=== PATIENT | male | born 1985 | race Caucasian/White ===

== ENCOUNTER 2016-11-11 10:01 | Emergency (ER) | payer OTHER ==
[2016-11-11 10:44] VITALS: BP 125/86
--- NOTE | 2016-11-11 11:11 | UC ---
Skin Complaint HPI - HPI Summary HPI Summary: 2 days ago pt noticed thorn or other FB in R thigh above knee after walking in the [place]. Pulled it out, and now area is swollen and red and tender. Denies fever or joint pain. - History of Current Complaint Chief Complaint: UCLowerExtremity Time Seen by Provider: 11/11/16 10:41 Stated Complaint: RIGHT KNEE PAIN Hx Obtained From: Patient Onset/Duration: Gradual Onset, Lasting Days Timing: Constant Onset Severity: Mild Current Severity: Mild Location: Discrete Character: Redness, Raised, Painful Aggravating Factor(s): Touch Associated Signs & Symptoms: Negative: Fever, Chills, Syncope, Drainage Related History: Foreign Body - Allergy/Home Medications Allergies/Adverse Reactions: Allergies Allergy/AdvReac Type Severity Reaction Status Date / Time No Known Allergies Allergy Verified 11/11/16 10:44 Home Medications: Home Medications Acetaminophen [Acetaminophen Extra Stren] 1,000 mg PO Q6H PRN 11/11/16 [History Confirmed 11/11/16] Review of Systems Constitutional: Negative Skin: Other - redness, PW Eyes: Negative ENT: Negative Respiratory: Negative Cardiovascular: Negative Gastrointestinal: Negative Genitourinary: Negative Motor: Negative Neurovascular: Negative Musculoskeletal: Negative Neurological: Negative Psychological: Negative Is Patient Immunocompromised?: No All Other Systems Reviewed And Are Negative: Yes PMH/Surg Hx/FS Hx/Imm Hx Previously Healthy: Yes - Surgical History Surgical History: Yes Surgery Procedure, Year, and Place: WISDOM TEETH EXTRACTION - Family History Known Family History: Negative: Blood Disorder - Social History Occupation: Employed Full-time Alcohol Use: Occasionally Substance Use Type: None Smoking Status (MU): Never Smoked Tobacco Physical Exam Triage Information Reviewed: Yes Appearance: Well-Appearing, No Pain Distress, Well-Nourished Vital Signs: Initial Vital Signs Temp 98.3 F 11/11/16 10:37 Pulse 79 11/11/16 10:37 Resp 16 11/11/16 10:37 BP 125/86 11/11/16 10:37 Pulse Ox 98 11/11/16 10:37 Vital Signs Reviewed: Yes Eye Exam: Normal Eyes: Positive: Conjunctiva Clear ENT Exam: Normal ENT: Positive: Normal ENT inspection, Hearing grossly normal, TMs normal Dental Exam: Normal Neck exam: Normal Neck: Positive: Supple, Nontender, No Lymphadenopathy Respiratory Exam: Normal Respiratory: Positive: Chest non-tender, Lungs clear, Normal breath sounds, No respiratory distress, No accessory muscle use Cardiovascular Exam: Normal Cardiovascular: Positive: RRR, No Murmur Musculoskeletal Exam: Normal Neurological Exam: Normal Skin Exam: Other - PW on R lower thigh with small ring of reactive erythema. Approx 12cm round area of faint swelling, pink skin, tenderness. Course/Dx - Diagnoses Provider Diagnoses: R leg retained FB. R leg cellulitis Discharge - Discharge Plan Condition: Stable Disposition: HOME Prescriptions: Sulfamethox/Trimethoprim DS* [Bactrim DS 800/160 TAB*] 1 tab PO BID #10 tab Patient Education Materials: Soft Tissue Foreign Body (ED), Cellulitis (ED) Referrals: Micheline Felder MD [Medical Doctor] - Additional Instructions: Apply frequent hot compresses today to encourage your skin to expel the foreign body. If a small abscess forms, you can continue the warm compresses to see if it spontaneously drains. Come back if you have a very large, very painful, or non-draining abscess. Please get seen again if you do not see some improvement within 48 hours, or at any time if you have fever, pain in the joint, or increasing redness/swelling.
== END 2016-11-11 11:16 | disposition home or self-care (01) ==
LOC: UCCORT 10:01
DX: H65.92 Unspecified nonsuppurative otitis media, left ear (principal); J32.9 Chronic sinusitis, unspecified; J98.01 Acute bronchospasm; F17.210 Nicotine dependence, cigarettes, uncomplicated
CPT/HCPCS: 99202; G0463

== ENCOUNTER 2017-11-02 17:19 | Emergency (ER) | payer OTHER ==
[2017-11-02 18:38] VITALS: BP 148/82
[2017-11-02] MEDS ORDERED: Clindamycin CAP* 150 MG PO ONE (19:16)
--- NOTE | 2017-11-02 19:17 | UC ---
Upper Extremity HPI - HPI Summary HPI Summary: WOKE UP SATURDAY WITH A SORE AND SWOLLEN RIGHT ELBOW NO HX OF INJURY TODAY IS RED SWOLLEN AND HURTS TO MOVE - History of Current Complaint Chief Complaint: UCUpperExtremity Stated Complaint: RIGHT ELBOW PAIN Time Seen by Provider: 11/02/17 19:02 Hx Obtained From: Patient ?: No Onset/Duration: Sudden Onset, Lasting Days Severity Initially: Mild Severity Currently: Mild Pain Intensity: 2 Location Of Pain: Is Discrete @ - right elbow Character: Dull, Throbbing Aggravating Factor(s): Movement, Flexion Alleviating Factor(s): OTC Meds Associated Signs And Symptoms: Positive: Swelling, Redness - Risk Factors Non-Orthopedic Risk Factor: Negative DVT Risk Factors: Negative Septic Arthritis Risk Factor: Negative Compartment Syndrome Risk Factors: Pain - Allergies/Home Medications Allergies/Adverse Reactions: Allergies Allergy/AdvReac Type Severity Reaction Status Date / Time No Known Allergies Allergy Verified 11/11/16 10:44 Home Medications: Home Medications Naproxen Sodium [Aleve] 440 mg PO Q8H 11/02/17 [History Confirmed 11/02/17] PMH/Surg Hx/FS Hx/Imm Hx Previously Healthy: Yes - Surgical History Surgical History: Yes Surgery Procedure, Year, and Place: WISDOM TEETH EXTRACTION - Family History Known Family History: Positive: Diabetes Negative: Blood Disorder - Social History Alcohol Use: Occasionally Substance Use Type: None Smoking Status (MU): Never Smoked Tobacco Review of Systems Skin: Other - redness/heat on right elbow Musculoskeletal: Myalgia All Other Systems Reviewed And Are Negative: Yes Physical Exam Triage Information Reviewed: Yes Appearance: Well-Appearing, No Pain Distress, Obese Vital Signs: Initial Vital Signs Temp 98.0 F 11/02/17 18:34 Pulse 53 11/02/17 18:34 Resp 22 11/02/17 18:34 BP 148/82 11/02/17 18:34 Pulse Ox 99 11/02/17 18:34 Vital Signs Reviewed: Yes Eyes: Positive: Conjunctiva Clear ENT: Positive: Hearing grossly normal Neck: Positive: Supple Respiratory: Positive: Chest non-tender Cardiovascular: Positive: Pulses Normal, Brisk Capillary Refill Abdomen Description: Positive: Nontender Bowel Sounds: Positive: Present Musculoskeletal: Positive: Strength Intact, ROM Intact, Edema @ - right elbow with soft tissue swelling/erythema and prominent bursa, no streaking Upper Extremity Course/Dx - Course Course Of Treatment: Soft tissue swelling on right elbow consistent with olecranon bursitis. Continue naproxen as needed and start clindamycin tid for 7 days as prescribed, first dose given at . f/u with PCP in a week. - Differential Dx/Diagnosis Provider Diagnoses: Olecranon bursitis of right elbow. Discharge - Sign-Out/Discharge Documenting (check all that apply): Patient Departure All imaging exams completed and their final reports reviewed: No Studies - Discharge Plan Condition: Stable Disposition: HOME Patient Education Materials: Elbow Bursitis (ED), Clindamycin (By mouth) Referrals: No Primary Care Phys,NOPCP [Primary Care Provider] - [facility] [place] [facility] [Outside] - Billing Disposition and Condition Condition: STABLE Disposition: Home
== END 2017-11-02 19:31 | disposition home or self-care (01) ==
LOC: UCCORT 17:19
DX: M70.21 Olecranon bursitis, right elbow (principal); Y93.9 Activity, unspecified
CPT/HCPCS: 99212; A9270-GY; G0463

== ENCOUNTER 2019-01-04 11:04 | Emergency (ER) | payer BC, OTHER ==
[2019-01-04 11:52] VITALS: BP 148/78
--- NOTE | 2019-01-04 12:30 | UC ---
Knee Pain HPI - HPI Summary HPI Summary: 33 yo who awoke with acutely swollen right knee without hx of injury; spent yesterday deer hunting with increased walking, but [place] most of the [place]. No hx of gout. Alcohol intake is about 3 beers per week, diet is high in meat, no past hx of gout and no FH of gout. no fever, chills or myalgias. He has used naproxen 440mg without significant relief of pain. works as an excavator. - History of Current Complaint Chief Complaint: UCLowerExtremity Stated Complaint: RT KNEE COMPLAINT Time Seen by Provider: 01/04/19 12:28 Hx Obtained From: Patient Onset/Duration: Sudden Onset Severity Initially: Moderate Severity Currently: Moderate Pain Intensity: 5 Character: Aching Aggravating Factor(s): Movement, Weight Bearing Alleviating Factor(s): Position, OTC Meds - tried naproxen 440mg Associated Signs And Symptoms: Positive: Swelling, Redness. Negative: Fever Able to Bear Weight: Yes - Risk Factors Septic Arthritis Risk Factor: Negative Gout Risk Factor: Male, Obesity - Allergies/Home Medications Allergies/Adverse Reactions: Allergies Allergy/AdvReac Type Severity Reaction Status Date / Time No Known Allergies Allergy Verified 01/04/19 11:47 PMH/Surg Hx/FS Hx/Imm Hx Previously Healthy: Yes - no regular MD checks. - Surgical History Surgical History: Yes Surgery Procedure, Year, and Place: WISDOM TEETH EXTRACTION - Family History Known Family History: Positive: Diabetes - grandfather, Other - negative FH of gout Negative: Blood Disorder - Social History Occupation: Employed Full-time Lives: With Family Alcohol Use: Occasionally Substance Use Type: None Smoking Status (MU): Never Smoked Tobacco Review of Systems All Other Systems Reviewed And Are Negative: Yes Constitutional: Positive: Negative Skin: Positive: Negative Physical Exam Appearance: Well-Appearing, Pain Distress - mild at rest, moderate with walking. Vital Signs: Initial Vital Signs Temp 98.8 F 01/04/19 11:48 Pulse 89 01/04/19 11:48 Resp 16 01/04/19 11:48 BP 148/78 01/04/19 11:48 Pulse Ox 99 01/04/19 11:48 ENT: Positive: Pharynx normal Neck: Positive: Supple, Nontender, No Lymphadenopathy Respiratory: Positive: Lungs clear, Normal breath sounds Cardiovascular: Positive: RRR, No Murmur Musculoskeletal Exam: Other - Right knee with mild erythema, no increased warmth , in pre-patellar area. Musculoskeletal: Positive: Strength Intact, No Edema, ROM Limited @ - right knee , with active flexion to just shy of 90 degrees. No instability detercted with neg Lachmann's and medial and lateral joint stress. Neurological Exam: Normal Psychological Exam: Normal Skin Exam: Normal Diagnostics - Radiology No standard instances Radiology Interpretation Completed By: Radiologist Summary of Radiographic Findings: Small to moderate right knee joint effusion without bony abnormality per Dr. Ralph. Knee Pain Course/Dx - Course Course Of Treatment: Clinical picture suggest bursitis, will continue with naproxen, ice. Labs done to rule out septic joint, gout and Lyme, with referral to Dr. Yan for evaluation and management. Crutches declined by patient. - Differential Dx/Diagnosis Differential Diagnosis/HQI/PQRI: Bursitis, Gout, Strain, Other Provider Diagnosis: Acute pain of right knee Discharge ED - Sign-Out/Discharge Documenting (check all that apply): Patient Departure All imaging exams completed and their final reports reviewed: Yes - Discharge Plan Condition: Stable Disposition: HOME Prescriptions: Naproxen [Naproxen 500 mg tab] 500 mg PO BID #30 tablet Patient Education Materials: Swollen Knee Joint (ED) Referrals: No Primary Care Phys,NOPCP [Primary Care Provider] - Dylan Yan MD [Medical Doctor] - Additional Instructions: Your blood pressure is elevated today to 148/78. Labs have been done today to screen for gout, infection and Lyme disease. A prescription has been sent for naproxen 500m g twice daily with food for knee pain and inflammation. Continue to ice the knee for 20 to 30 minutes every 3 hours, with elevation. You have a referral to Dr. Yan for assessment and management of the knee swelling. Please call to arrange a visit within 1 to 2 days. - Billing Disposition and Condition Condition: STABLE Disposition: Home
[2019-01-05 11:11] LABS: ABS Eosinophils 0.1 10^3/ul (0-0.6); ABS Lymphocytes 1.4 10^3/ul (1.0-4.8); ABS Monocytes 0.6 10^3/ul (0-0.8); ABS Neutrophils 8.3 10^3/ul (1.5-7.7); Albumin 4.3 g/dL (3.2-5.2); Calcium 9.6 mg/dL (8.6-10.3); Eosinophil % 1.2 %; Hematocrit 47 % (42-52); Hemoglobin 16.6 g/dL (14.0-18.0); Lymphocyte % 13.5 %; Mean Corpuscular HGB Conc 35 g/dL (31-36); Mean Corpuscular Hemoglobin 32 pg (27-31); Mean Corpuscular Volume 92 fL (80-94); Mean Platelet Volume 9.7 fL (7.4-10.4); Nucleated Red Blood Cells % 0.1; Platelet Count 224 10^3/uL (150-450); Potassium 4.1 mmol/L (3.5-5.0); Red Blood Count 5.17 10^6 /uL (4.18-5.48); Red Cell Distribution Width 13 % (10-15); Total Bilirubin 0.6 mg/dL (0.2-1.0); White Blood Count 10.5 10^3/uL (3.5-10.8)
[2019-01-05 11:17] LABS: Albumin/Globulin Ratio 1.5 (1-3); BUN/Creatinine Ratio 18.6 (8-20); EGFR African American 103.1 (>60); EGFR Non-African American 85.2 (>60); Globulin 2.8 g/dL (2-4); Total Protein 7.1 g/dL (6.4-8.9); Uric Acid 6.7 mg/dL (4.4-7.6)
--- NOTE | 2019-01-06 07:17 | UC ---
- Progress Note Progress Note: Laboratory results come back from January 04, 2019. Patient was seen here for swollen knee and referred to orthopedics. Lyme screen was negative CBC was essentially negative. On the CMP the only. Irregularities are slightly elevated ALT and AST at 59 and 43 respectively normal ranges her 7-52 and 13-39. Nursing to call patient inform him of the results and ensure that he has follow- up for his knee to include reevaluation of the liver function values. Course/Dx - Diagnoses Provider Diagnoses: Acute pain of right knee Discharge ED - Sign-Out/Discharge Documenting (check all that apply): Patient Departure All imaging exams completed and their final reports reviewed: Yes - Discharge Plan Condition: Stable Disposition: HOME Prescriptions: Naproxen [Naproxen 500 mg tab] 500 mg PO BID #30 tablet Patient Education Materials: Swollen Knee Joint (ED) Referrals: Dylan Yan MD [Medical Doctor] - No Primary Care Phys,NOPCP [Primary Care Provider] - Additional Instructions: Your blood pressure is elevated today to 148/78. Labs have been done today to screen for gout, infection and Lyme disease. A prescription has been sent for naproxen 500m g twice daily with food for knee pain and inflammation. Continue to ice the knee for 20 to 30 minutes every 3 hours, with elevation. You have a referral to Dr. Yan for assessment and management of the knee swelling. Please call to arrange a visit within 1 to 2 days. - Billing Disposition and Condition Condition: STABLE Disposition: Home
== END 2019-01-04 13:31 | disposition home or self-care (01) ==
LOC: UCCORT 11:04
DX: M25.461 Effusion, right knee (principal); M25.561 Pain in right knee
CPT/HCPCS: 36415; 80053; 84550; 85025; 86618; 99212; G0463